=== PATIENT | male | born 1990 | race Caucasian/White ===

== ENCOUNTER 2018-12-12 17:22 | Emergency (ER) | payer OTHER ==
--- NOTE | 2018-12-12 17:46 | ED Physician Documentation ---
General Adult - HISTORIAN Historian: patient - HPI Stated Complaint: rectal bleeding Chief Complaint: General Adult Additional Information: Patient presents to ED with bright red blood per rectum which started today. Patient reports a hemorrhoidectomy on 12/02/18. Patient states in October 2018 his hemoglobin was 3.5. He received 2 units of blood in October, Iron infusion in November, with another 2 units of blood in November. Just prior to surgery Hgb was 10.0. Today after he saw blood in his stools he became dizzy so he came to ED. Surgery was performed at [facility] by Dr. Gary Ospina. Patient denies chest pain, shortness of breath, abdominal pain, nausea or vomiting. Patient reports EGD and colonoscopy prior to surgery which was normal with exception of hemorrhoids. Onset: hours (6) Timing: still present Severity: mild - ROS CONST: denies: fever EYES/ENT: none CVS/RESP: denies: chest pain, shortness of breath GI/: denies: abdominal pain, vomiting, nausea, diarrhea MS/SKIN/LYMPH: none NEURO/PSYCH: dizziness. denies: headache, fainting - PAST HX Past History: other (hemorrhoids) Surgeries/Procedures: other (hemorrhoidectomy) Allergies/Adverse Reactions: Allergies Allergy/AdvReac Type Severity Reaction Status Date / Time No Known Allergies Allergy Verified 12/12/18 17:43 Home Medications: Ambulatory Orders Medication Instructions Recorded HYDROcodone /APAP 5/325 [[place] 1 each PO Q6 PRN 12/12/18 5/325] Ketorolac Tromethamine [Toradol] 1 tab PO Q8H 12/12/18 - SOCIAL HX Smoking History: cigarettes, greater than 1 pack/day Alcohol Use: none Drug Use: none - FAMILY HX Family History: No - VITAL SIGNS Vital Signs: Vital Signs Temp Pulse Resp BP Pulse Ox 96.2 F L 98 H 19 131/87 99 12/12/18 17:35 12/12/18 17:35 12/12/18 17:35 12/12/18 17:35 12/12/18 17:35 - REVIEWED ASSESSMENTS Nursing Assessment Reviewed: Yes Vitals Reviewed: Yes Progress - Progress Progress: 1814 Discussed with House sup at [place], waiting for call back 1814 Patient had large bloody stool, 1200ml bright red blood with clots. [address] Ospina, agrees with transfer. Will admit observation General Adult Physical Exam - PHYSICAL EXAM GENERAL APPEARANCE: no distress EENT: DENNIS NECK: supple RESPIRATORY: no resp distress, chest non-tender, breath sounds normal CVS: reg rate & rhythm, heart sounds normal ABDOMEN: soft, normal bowel sounds, non-tender, tenderness BACK: normal inspection, no CVA tenderness SKIN: warm/dry, pallor EXTREMITIES: non-tender, no edema NEURO: oriented X3, motor nml, sensation nml, mood/affect nml Discharge Clincal Impression: Rectal hemorrhage Referrals: Shilpi Bagley MD [Primary Care Provider] - 2 Days Comments: Will transfer to [place] under the care of Dr. Gary Ospina. Condition: Fair Disposition: 02 XFER SHT-TRM HOSP Decision to Admit: NO Date of Decison to Admit: 12/12/18 Decision Time: 18:38
[2018-12-12 17:51] LABS: BASOPHILS % 0.4 % (0.0-1.5); NEUTROPHILS # 3.4 # k/uL (1.4-7.7)
[2018-12-12 17:57] LABS: eGFR (Non-African) > 60
[2018-12-12] MEDS: 0.9 % SODIUM CHLORIDE 1,000 ML IV ONE ×3 (17:58→18:48)
[2018-12-12 19:09] VITALS: BP 114/63
== END 2018-12-12 19:09 | disposition short-term general hospital (02) ==
LOC: ED 17:22
DX: K62.5 Hemorrhage of anus and rectum (principal)
CPT/HCPCS: 80053; 85025; 96361; 99284; J7030; S1016